=== PATIENT | female | born 2000 | race Hispanic/Latino ===

== ENCOUNTER 2018-06-13 14:23 | Emergency (ER) | payer OTHER, SELFPAY ==
--- NOTE | 2018-06-13 15:04 | RAD ---
PORTABLE CHEST 1 VIEW: Date: 06/13/18 Time: 1432 hours HISTORY: Chest pain. FINDINGS: The heart size is normal. The lungs are well expanded and clear. The bony thorax is normal. IMPRESSION: Normal exam. POS: [id number]
== END 2018-06-13 15:29 | disposition home or self-care (01) ==
LOC: EEVIPCON 14:23 → ERS 14:23
DX: F41.0 Panic disorder [episodic paroxysmal anxiety] (principal)
CPT/HCPCS: 71045; 93005

== ENCOUNTER 2018-06-13 18:49 | Emergency (ER) | payer OTHER, SELFPAY | END 2018-06-13 20:42 | disposition home or self-care (01) | LOC: ERS 18:49 | DX: F41.1 Generalized anxiety disorder (principal); Z79.899 Other long term (current) drug therapy | CPT/HCPCS: 99283 ==

== ENCOUNTER 2018-08-12 20:38 | Emergency (ER) | payer OTHER ==
[2018-08-13 00:29] LABS: HBSAB Concentration 5.59 mIU/mL; HIV (1/2) Antibody/Antigen Non-Reactive (NonReactive); Hep B Surf AB Non-Reactive (NonReactive); Hep C IgG Ab Non-Reactive (NonReactive); Hep C Index 0.13 S/CO (0-0.79)
== END 2018-08-12 21:13 | disposition home or self-care (01) ==
LOC: ERS 20:38
DX: Z77.21 Contact with and (suspected) exposure to potentially hazardous body fluids (principal); F41.9 Anxiety disorder, unspecified; Z79.899 Other long term (current) drug therapy
CPT/HCPCS: 86706; 86803; 87389; 99283

== ENCOUNTER 2019-01-12 13:43 | Outpatient (CLI) | payer OTHER ==
--- NOTE | 2019-01-12 15:43 | ULT ---
Pelvic sonogram transabdominal imaging with duplex evaluation HISTORY: Pelvic pain. FINDINGS: Urinary bladder is unremarkable. Uterus has a heterogeneous echotexture and is 9.9 cm. Endo metrium is 1.0 cm. Physiologic amount of free fluid within the cul-de-sac. Right ovary measures up to 4.7 cm and the left 3.1 cm. Each has a normal appearance with good color and spectral Doppler flow . IMPRESSION: Normal pelvic sonogram.
== END 2019-01-12 13:44 | disposition home or self-care (01) ==
LOC: SCSULT 13:43
PROVIDERS: ATTEND Family Medicine
DX: Z01.411 Encounter for gynecological examination (general) (routine) with abnormal findings (principal)
CPT/HCPCS: 76856; 93976